=== PATIENT | female | born 1980 | race African-American/Black ===

== ENCOUNTER 2017-04-25 21:00 | Emergency (ER) | payer OTHER | END 2017-04-25 22:55 | disposition home or self-care (01) | LOC: FER 21:00 | DX: S93.402A Sprain of unspecified ligament of left ankle, initial encounter (principal); Z88.8 Allergy status to other drugs, medicaments and biological substances; X50.1XXA Overexertion from prolonged static or awkward postures, initial encounter; Y92.009 Unspecified place in unspecified non-institutional (private) residence as the place of occurrence of the external cause | CPT/HCPCS: 73610; J1885 ==

== ENCOUNTER 2020-11-29 14:11 | Emergency (ER) | payer OTHER ==
[~2020-11-29 14:11] MED LIST: ATARAX25 MG PO; BACTRIM DS TAB1 EACH PO; CETIRIZINE HCL10 MG PO; CLARITIN10 MG PO; DETROL LA4 MG PO; DICLOFENAC SODI75 MG PO; DICYCLOMINE HCL20 MG PO; DIFLUCAN 100MG100 MG PO; DIFLUCAN150 MG PO; ESTRACE1 MG PO; ESTRADIOL1 EAC2 TOP; FLORAJEN; FLORAJEN3 CAPS460 MG PO; IBUPROFEN800 MG PO; IRON325 M1 PO; MACROBID100 MG PO; MEDROL 4MG DOSEP4 MG PO; METAXALONE800 MG PO; METRONIDAZOLE500 MG PO; NORCO 5-325 TA1 EAC1 PO; NORVASC5 MG PO; OXYBUTYNIN CHLO15 MG PO; PANTOPRAZOLE SO40 MG PO; PROTONIX 40MG T40 MG PO; PYRIDIUM100 MG PO; TOLTERODINE TART4 MG PO; TOPIRAMATE50 MG PO; TRAMADOL HCL50 MG PO; VICODIN 10/3251 EACH PO
[2020-11-29] MEDS ORDERED: VIBRAMYCIN100 MG PO (14:43)
[2020-11-29] MEDS ORDERED: MEDROL 4MG DOSEP4 MG PO (14:43)
[2020-11-29] MEDS ORDERED: ATARAX25 MG PO (14:43)
== END 2020-11-29 15:30 | disposition home or self-care (01) ==
LOC: FER 14:11
DX: L50.0 Allergic urticaria (principal); T36.8X5A Adverse effect of other systemic antibiotics, initial encounter; I10 Essential (primary) hypertension; Z87.442 Personal history of urinary calculi; Z79.899 Other long term (current) drug therapy; Z88.5 Allergy status to narcotic agent
CPT/HCPCS: 99282; J1100

== ENCOUNTER 2021-01-06 14:22 | Emergency (ER) | payer OTHER ==
[~2021-01-06 14:22] MED LIST changes: +VIBRAMYCIN100 MG PO
[2021-01-06] MEDS ORDERED: KEFLEX250 MG PO (17:26)
[2021-01-06] MEDS ORDERED: BACTRIM DS TAB1 EACH PO (17:26)
== END 2021-01-06 17:51 | disposition home or self-care (01) ==
LOC: FER 14:22
DX: L02.31 Cutaneous abscess of buttock (principal); Z86.14 Personal history of Methicillin resistant Staphylococcus aureus infection; Z88.5 Allergy status to narcotic agent; Z88.1 Allergy status to other antibiotic agents
CPT/HCPCS: 87070; 87077; 87186; 87205

== ENCOUNTER 2021-02-22 19:40 | Emergency (ER) | payer OTHER ==
[~2021-02-22 19:40] MED LIST changes: +KEFLEX250 MG PO
[2021-02-22] MEDS ORDERED: CYCLOBENZAPRINE10 MG PO (21:41)
[2021-02-22] MEDS ORDERED: PREDNISONE 20MG20 MG PO (21:41)
== END 2021-02-22 21:55 | disposition home or self-care (01) ==
LOC: FER 19:40
DX: M79.661 Pain in right lower leg (principal); I10 Essential (primary) hypertension; Z88.5 Allergy status to narcotic agent; Z87.39 Personal history of other diseases of the musculoskeletal system and connective tissue
CPT/HCPCS: 73590; 96372; J1100; J1885

== ENCOUNTER 2021-03-30 14:50 | Emergency (ER) | payer OTHER ==
[~2021-03-30 14:50] MED LIST changes: +CYCLOBENZAPRINE10 MG PO; +PREDNISONE 20MG20 MG PO
[2021-03-30 15:39] LABS: BASOPHIL 0.3 % (0-2); EOSINOPHIL 0.8 % (0-5); HCT 38.5 % (37.0-47.0); HGB 12.4 g/dl (12.5-16.0); LYMPHOCYTE 41.5 % (15-48); MCH 27.4 pg (25.0-31.0); MCHC 32.2 g/dL (32.0-36.0); MCV 85.2 fL (78.0-100.0); MONOCYTE 5.8 % (0-12); MPV 9.5 fL (6.0-9.5); NEUTROPHIL 51.1 % (41-80); NRBC 0; PLT 359 K/uL (150-400); RBC 4.52 M/uL (4.20-5.40); RDW 13.7 % (11.5-14.0); WBC 9.1 K/uL (4.0-10.5)
[2021-03-30 15:41] LABS: BILIRUBIN NEGATIVE (NEGATIVE); BLOOD 3+ Ery/uL (NEGATIVE); CLARITY CLOUDY (CLEAR); GLUCOSE (U) NORMAL (NORMAL); LEUKOCYTES NEGATIVE Leu/uL (NEGATIVE); NITRITE NEGATIVE (NEGATIVE); PROTEIN 2+ mg/dL (NEGATIVE); SPECIFIC GRAVITY >=1.030 (1.001-1.030); pH 5.5 (5.0-9.0)
[2021-03-30 15:42] LABS: COLOR BROWN (YELLOW)
[2021-03-30 15:47] LABS: MUCOUS TRACE; URINARY RBC TNTC
[2021-03-30 15:49] LABS: BACTERIA 1+
[2021-03-30 16:03] LABS: ALBUMIN 3.7 g/dL (3.4-5.0); BILIRUBIN - TOTAL 0.2 mg/dL (0.2-1.0); BUN/CREAT RATIO (CALC) 9.8 RATIO; CREATININE 0.82 mg/dL (0.51-0.95); POTASSIUM 3.5 mmol/L (3.5-5.1); TOTAL PROTEIN 7.7 g/dL (6.4-8.2)
== END 2021-03-30 17:58 | disposition home or self-care (01) ==
LOC: FER 14:50
PROVIDERS: Nurse Practitioner Family
DX: R10.11 Right upper quadrant pain (principal); R31.9 Hematuria, unspecified; R11.0 Nausea; Z87.19 Personal history of other diseases of the digestive system; Z90.710 Acquired absence of both cervix and uterus; Z98.890 Other specified postprocedural states; Z87.442 Personal history of urinary calculi; Z88.1 Allergy status to other antibiotic agents; Z88.5 Allergy status to narcotic agent
CPT/HCPCS: 36415; 80053; 81001; 85025; 87088; J1885; J2405; J7030; Q9967

== ENCOUNTER 2021-04-08 20:18 | Emergency (ER) | payer OTHER ==
[2021-04-08 21:30] LABS: BILIRUBIN NEGATIVE (NEGATIVE); BLOOD 3+ Ery/uL (NEGATIVE); CLARITY CLEAR (CLEAR); COLOR YELLOW (YELLOW); GLUCOSE (U) NORMAL (NORMAL); LEUKOCYTES NEGATIVE Leu/uL (NEGATIVE); NITRITE NEGATIVE (NEGATIVE); PROTEIN NEGATIVE (NEGATIVE); SPECIFIC GRAVITY >=1.030 (1.001-1.030); UROBILINOGEN 0.2 mg/dL (0.2-1.0)
[2021-04-08 21:36] LABS: BACTERIA TRACE; URINARY RBC TNTC; URINARY WBC RARE
[2021-04-08 21:58] LABS: BASOPHIL 0.4 % (0-2); EOSINOPHIL 1.1 % (0-5); HCT 37.8 % (37.0-47.0); HGB 12.4 g/dl (12.5-16.0); LYMPHOCYTE 44.6 % (15-48); MCH 27.7 pg (25.0-31.0); MCHC 32.8 g/dL (32.0-36.0); MCV 84.6 fL (78.0-100.0); MONOCYTE 6.6 % (0-12); MPV 9.2 fL (6.0-9.5); NEUTROPHIL 46.8 % (41-80); NRBC 0; PLT 360 K/uL (150-400); RBC 4.47 M/uL (4.20-5.40); RDW 14.1 % (11.5-14.0); WBC 8.3 K/uL (4.0-10.5)
[2021-04-08 22:03] LABS: BUN/CREAT RATIO (CALC) 8.3 RATIO; CREATININE 0.84 mg/dL (0.51-0.95); POTASSIUM 3.8 mmol/L (3.5-5.1)
[2021-04-08] MEDS ORDERED: NORCO 5-325 TA1 EACH PO (22:16)
[2021-04-08] MEDS ORDERED: FLOMAX0.4 MG PO (22:16)
== END 2021-04-08 22:32 | disposition home or self-care (01) ==
LOC: FER 20:18
PROVIDERS: Nurse Practitioner Family
DX: R10.9 Unspecified abdominal pain (principal); M54.9 Dorsalgia, unspecified; I10 Essential (primary) hypertension; Z98.890 Other specified postprocedural states; Z88.5 Allergy status to narcotic agent; Z79.899 Other long term (current) drug therapy
CPT/HCPCS: 36415; 80048; 81001; 85025; 96372; 99284; J1100; J1885

== ENCOUNTER 2021-04-18 19:53 | Emergency (ER) | payer OTHER ==
[~2021-04-18 19:53] MED LIST changes: +FLOMAX0.4 MG PO; +NORCO 5-325 TA1 EACH PO
[2021-04-18 21:33] LABS: BASOPHIL 0.8 % (0-2); EOSINOPHIL 2.1 % (0-5); HCT 40.2 % (37.0-47.0); HGB 12.8 g/dl (12.5-16.0); LYMPHOCYTE 33.7 % (15-48); MCH 27.3 pg (25.0-31.0); MCHC 31.8 g/dL (32.0-36.0); MCV 85.7 fL (78.0-100.0); MONOCYTE 6.9 % (0-12); MPV 9.3 fL (6.0-9.5); NEUTROPHIL 55.8 % (41-80); NRBC 0; PLT 371 K/uL (150-400); RBC 4.69 M/uL (4.20-5.40); RDW 14.3 % (11.5-14.0)
[2021-04-18 21:33] LABS: BILIRUBIN NEGATIVE (NEGATIVE); BLOOD 3+ Ery/uL (NEGATIVE); CLARITY CLEAR (CLEAR); COLOR YELLOW (YELLOW); GLUCOSE (U) NORMAL (NORMAL); LEUKOCYTES NEGATIVE Leu/uL (NEGATIVE); NITRITE NEGATIVE (NEGATIVE); PROTEIN 1+ mg/dL (NEGATIVE); SPECIFIC GRAVITY >=1.030 (1.001-1.030); UROBILINOGEN 0.2 mg/dL (0.2-1.0); pH 5.5 (5.0-9.0)
[2021-04-18 21:49] LABS: ALBUMIN 3.6 g/dL (3.4-5.0); BILIRUBIN - TOTAL 0.2 mg/dL (0.2-1.0); BUN/CREAT RATIO (CALC) 6.2 RATIO; CREATININE 0.97 mg/dL (0.51-0.95); GLOBULIN (CALCULATION) 4.3 g/dL; POTASSIUM 3.8 mmol/L (3.5-5.1); TOTAL PROTEIN 7.9 g/dL (6.4-8.2)
[2021-04-18 21:50] LABS: BACTERIA 1+; MUCOUS TRACE; URINARY RBC TNTC
[2021-04-18] MEDS ORDERED: NORCO 5-325 TA1 EACH PO (23:08)
== END 2021-04-19 00:35 | disposition home or self-care (01) ==
LOC: FER 19:53
PROVIDERS: Emergency Medicine
DX: N20.1 Calculus of ureter (principal); F17.200 Nicotine dependence, unspecified, uncomplicated; Z88.5 Allergy status to narcotic agent; Z88.1 Allergy status to other antibiotic agents
CPT/HCPCS: 36415; 80053; 81001; 82150; 83690; 85025; J1885; J2270; J2405; J7030

== ENCOUNTER 2021-11-19 15:45 | Emergency (ER) | payer OTHER | END 2021-11-19 17:05 | disposition home or self-care (01) | LOC: FER 15:45 | DX: R59.0 Localized enlarged lymph nodes (principal); I10 Essential (primary) hypertension; Z86.16 Personal history of COVID-19; Z88.1 Allergy status to other antibiotic agents; Z88.5 Allergy status to narcotic agent | CPT/HCPCS: 99283 ==

== ENCOUNTER 2022-03-27 16:23 | Emergency (ER) | payer OTHER ==
[2022-03-27] MEDS ORDERED: CYCLOBENZAPRINE10 MG PO (17:13)
[2022-03-27] MEDS ORDERED: MEDROL 4MG DOSEP4 MG PO (17:13)
== END 2022-03-27 17:20 | disposition home or self-care (01) ==
LOC: FER 16:23
DX: M25.511 Pain in right shoulder (principal); M25.551 Pain in right hip; I10 Essential (primary) hypertension; K21.9 Gastro-esophageal reflux disease without esophagitis; Z79.899 Other long term (current) drug therapy; Z88.1 Allergy status to other antibiotic agents; Z88.5 Allergy status to narcotic agent; V49.40XA Driver injured in collision with unspecified motor vehicles in traffic accident, initial encounter
CPT/HCPCS: 99283